=== PATIENT | male | born 1995 | race Hispanic/Latino ===

== ENCOUNTER 2021-02-05 18:43 | Emergency (ER) | payer SELFPAY ==
[~2021-02-05] VITALS: Ht 162.6 cm; Wt 90.7 kg
[2021-02-05 19:21] LABS: BASOPHILS % (AUTO) 0.3 % (0.0-5.0); EOSINOPHILS % (AUTO) 0.1 % (0.0-8.0); HEMATOCRIT 43.2 % (42-54); LYMPHOCYTES % (AUTO) 9.1 % (21.0-51.0); MEAN CORPUSCULAR HEMOGLOBIN 27.4 pg (27.0-33.0); MEAN CORPUSCULAR HGB CONC 34.3 g/dL (32.0-36.0); MEAN CORPUSCULAR VOLUME 79.9 fL (79-99); MONOCYTES % (AUTO) 2.3 % (3.0-13.0); NEUTROPHILS % (AUTO) 87.6 % (40.0-77.0); PLATELET COUNT (AUTO) 244 K/uL (130-400); RED BLOOD CELL COUNT(AUTO) 5.41 MIL/uL (4.50-6.20); RED CELL DISTRIBUTION WIDTH 12.6 % (11.0-15.5); WHITE BLOOD COUNT (AUTO) 15.3 K/uL (4.8-10.8)
[2021-02-05 19:31] LABS: CREATININE 1.5 mg/dL (0.5-1.5); POTASSIUM 4.1 mmol/L (3.5-5.1)
[2021-02-05 19:36] LABS: ALBUMIN 4.9 g/dL (3.5-5.0); BILIRUBIN,TOTAL 0.8 mg/dL (0.2-1.0); TOTAL PROTEIN, SERUM 8.5 g/dL (6.0-8.3)
[2021-02-05] MEDS ORDERED: KETOROLAC 30MG VIAL (30MG/ML) IV ONE (22:00)
[2021-02-05] MEDS ORDERED: ONDANSETRON 4MG INJ IVP ONE (22:00)
[2021-02-05] MEDS ORDERED: 0.9%NACL 1000ML 1,000 ML IV ONE (22:00)
[2021-02-05 22:21] LABS: BILIRUBIN,URINE Negative (NEGATIVE); COLOR,URINE Yellow (YELLOW); GLUCOSE, URINE (UA) Negative (NEGATIVE); KETONES,URINE Negative (NEGATIVE); LEUKOCYTE ESTERASE ,URINE Negative (NEGATIVE); NITRATE,URINE Negative (NEGATIVE); OCCULT BLOOD,URINE Large (NEGATIVE); PH,URINE 5.5 (5.0-8.0); PROTEIN,URINE Trace mg/dL (NEGATIVE); UROBILINOGEN,URINE 0.2 mg/dL (0.2-1.0)
[2021-02-05 22:28] LABS: CRP QUANTITATIVE < 2.00 mg/L (0.00-9.0)
[2021-02-05 22:41] LABS: APPEARANCE,URINE CLEAR (CLEAR)
[2021-02-05 22:50] LABS: BACTERIA,URINE Few /HPF (None Seen); SQUAMOUS EPITHELIAL CELL,UR 0-2 /HPF (0-2); WBC,URINE 0-1 /HPF (0-1)
[2021-02-05] MEDS ORDERED: CEFTRIAXONE 1G VIAL IVP ONE (23:00)
[2021-02-05] MEDS ORDERED: TAMSULOSIN HCL 0.4 MG CAP.ER.24H PO SCH (23:00)
[2021-02-05] MEDS ORDERED: ONDA4TAB4 PO (23:04)
[2021-02-05] MEDS ORDERED: CEPH500B PO (23:04)
[2021-02-05] MEDS ORDERED: TAMS-1 PO (23:04)
[2021-02-05 23:14] VITALS: BP 132/87
== END 2021-02-05 23:32 | disposition home or self-care (01) ==
LOC: EDH 18:43
DX: N20.0 Calculus of kidney (principal); Z79.899 Other long term (current) drug therapy
CPT/HCPCS: 36415; 74176; 80053; 81001; 83605; 85025; 86140; 87040 ×2; 96374; 96375; 99284; J0696; J1885; J2405; J7030